=== PATIENT | female | born 1970 | race Caucasian/White ===

== ENCOUNTER 2022-08-08 13:48 | Emergency (ER) | payer MEDICARE ==
[~2022-08-08 13:48] MED LIST: IMITREX TAB 2525 MG PO; LORTAB 5-325 M1 EACH PO; MIRALAX17 GM PO; NAPROSYN500 MG PO; PHENERGAN 12.12.5 M1 PO
== END 2022-08-08 14:04 | disposition left against medical advice (07) ==
LOC: ER1 13:48
DX: Z53.21 Procedure and treatment not carried out due to patient leaving prior to being seen by health care provider (principal)